=== PATIENT | female | born 1995 | race Caucasian/White ===

== ENCOUNTER 2021-05-13 17:04 | Emergency (ER) | payer OTHER ==
--- NOTE | 2021-05-13 19:12 | EDM.PDOC ---
ED HPI GENERAL MEDICAL PROBLEM - General Chief Complaint: Bite:Animal, Insect Stated Complaint: RABIES SHOT Time Seen by Provider: 05/13/21 18:47 Source of Information: Reports: Patient History Limitations: Reports: No Limitations - History of Present Illness INITIAL COMMENTS - FREE TEXT/NARRATIVE: Ms. 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 She explained that someone [facility] the [facility] in a box. The cat did not have a collar. She went to pick the cat up to transfer it from the box to a crate so that it could be impounded, when the cat "freaked out", scratching and possibly biting her right forearm. She was also scratched on her distal left forearm, but there are no puncture wounds. The cat then ran off. She states that the interaction was so quick, that she is not sure if the cat actually bit her or not. The patient is otherwise uninjured. Here in the ED, the patient is found to be hemodynamically stable, afebrile, saturating 96% on room air. She is comfortable, in no acute distress. Prior to this afternoon, the patient denies having a recent fever, chills, sore throat, ear pain, nasal or sinus congestion, cough, dyspnea, chest pain, palpitations, nausea, vomiting, constipation, diarrhea, abdominal pain, urinary symptoms, recent weight gain or weight loss, recent bloody bowel movements or black bowel movements, recent joint aches, headaches, or rashes. The patient's PCP is Dr. Wendi Schaefer, in [place]. She has not received a COVID vaccination. Bilateral Arm Pain Score (Numeric/FACES): 1 - Related Data Allergies Allergy/AdvReac Type Severity Reaction Status Date / Time No Known Allergies Allergy Verified 05/13/21 17:35 Home Meds: Home Meds Amoxicillin/Potassium Clav [Augmentin 875-125 Tablet] 1 tab PO Q12H #19 tablet 05/13/21 [Rx] Venlafaxine [Effexor] 107 mg PO DAILY 05/13/21 [History] Past Medical History Psychiatric History: Reports: Anxiety - Past Surgical History HEENT Surgical History: Reports: Oral Surgery (dental extractions) Social & Family History - Tobacco Use Tobacco Use Status *Q: Former Tobacco User Years of Tobacco use: 11 Packs/Tins Daily: 0.2 Month/Year Tobacco Last Used: Quit 2019 Tobacco Use Comment: Started smoking 2007 - Caffeine Use Caffeine Use: Reports: Coffee, Energy Drinks, Soda, Tea - Alcohol Use Alcohol Use History: Yes Alcohol Use Frequency: Socially - Recreational Drug Use Recreational Drug Use: Yes Drug Use in Last 12 Months: No Recreational Drug Type: Reports: Marijuana/Hashish (last smoked 2008) - Living Situation & Occupation Living situation: Reports: Single, Alone Occupation: Employed ([employer]) ED ROS GENERAL - Review of Systems Review Of Systems: Comprehensive ROS is negative, except as noted in HPI. ED EXAM, ANIMAL BITE - Physical Exam Exam: See Below Exam Limited By: No Limitations General Appearance: Alert, WD/WN, No Apparent Distress Extremities: Other (2 puncture wounds on the distal right forearm approximately 1.5 cm apart, each with a tiny drop of blood, although not actively bleeding. Several other subtle scratches/shallow puncture wounds to the right forearm. Scratches to the distal left forearm.) Course - Vital Signs Last Recorded V/S: Last Vital Signs Temp 36.7 C 05/13/21 17:38 Pulse 89 05/13/21 17:38 Resp 20 05/13/21 17:38 BP 130/79 05/13/21 17:38 Pulse Ox 96 05/13/21 17:38 - Orders/Labs/Meds Meds: Medications Discontinued Medications Generic Name Dose Route Start Last Admin Trade Name Irene PRN Reason Stop Dose Admin Amoxicillin/Clavulanate Potassium 1 tab 05/13/21 19:14 05/13/21 20:08 Amoxicillin/Clavulanate K 875-125 Mg Tab PO 05/13/21 19:15 1 tab ONETIME STA Administration Rabies Immune Globulin 1,740 unit 05/13/21 19:58 05/13/21 20:08 Rabies Immune Globulin/Pf 300 Unit/Ml 5 Ml Sdv IM 05/13/21 19:59 1,740 unit .ONCE STA Administration Rabies Vaccine 2.5 unit 05/13/21 19:30 05/13/21 20:09 Rabies Vaccine (Freeman) 2.5 Unit Inj Kit IM 05/13/21 19:31 2.5 unit .ONCE ONE Administration - Re-Assessments/Exams Free Text/Narrative Re-Assessment/Exam: 05/13/21 19:39 There are 2 puncture wounds on the patient's distal right forearm, each with a tiny drop of blood, but, after the wounds were cleaned, they likely did not penetrate into the subcutaneous tissue. Whether or not the patient requires postexposure prophylaxis (pep) is unclear. The [facility] was contacted at 19:07. Unfort unately, the person heating and refrigeration inspector acknowledged that he is not medically trained, and therefore could not advise for or against PEP. Kim at [facility] contacted at 19:12. Unfortunately, no Infectious Disease specialist is heating and refrigeration inspector. Case discussed with Jose A at [facility] at 19:15. Case then discussed with Dr. Aponte, Infectious Diseases specialist at [facility], at 19:21. Because the cat escaped, he recommended that we proceed with PEP. Based on the patient's weight, she will be given 1725 units of RIG, with approximately half injected into the site of the punctures, the other half into her arm. She will also be started on the rabies vaccine, day 0, and will need repeat doses on days 3, 7, and 14. Additionally, the patient will be started on a 10-day course of Augmentin. 05/13/21 20:18 I was able to infiltrate the entire 5.8 ml (1725 Units) of RIG into the areas of puncture wounds on the patient's distal right forearm. The patient tolerated the procedure well. She was then given her first of 4 rabies vaccinations in her left deltoid per Corrina HOWE. She will be started on Augmentin here in the ED, and I will submit a prescription for the patient to complete a 10-day course to the pharmacy of her choice. She is to in order to receive her additional rabies vaccinations. Departure - Departure Time of Disposition: 20:20 Disposition: Home, Self-Care 01 Condition: Good Clinical Impression: Cat bite, Need for post exposure prophylaxis for rabies - Discharge Information *PRESCRIPTION DRUG MONITORING PROGRAM REVIEWED*: Not Applicable *COPY OF PRESCRIPTION DRUG MONITORING REPORT IN PATIENT CR: Not Applicable Prescriptions: Amoxicillin/Potassium Clav [Augmentin 875-125 Tablet] 1 tab PO Q12H #19 tablet Instructions: Animal Bite, Adult, [id number] Referrals: Wendi Schaefer MD [Ordering Only Provider] - Forms: ED Department Discharge Additional Instructions: You were seen in the emergency room after you were scratched and possibly bitten by a stray cat this afternoon. You were treated with a local infusion of rabies immunoglobulin (RIG) into the site of the possible bite, as well as your first of 4 rabies vaccinations. You have been started on the antibiotic Augmentin, and a prescription for Augmentin has [facility], located in the [facility] across the street from the hospital. Take 1 tablet of Augmentin every 12 hours, starting tomorrow morning, 05/14/2021, as prescribed. Finish the entire prescription unless told otherwise by a doctor. Please contact the to arrange for your 2nd, 3rd, and 4th rabies vaccinations, on , 05/16/2021, 05/20/2021, and 05/27/2021, respectively. Keep your arm clean with ordinary soap and water. You may take [id number] Tylenol or ibuprofen as needed for discomfort. If any other problems, please do not hesitate to return to the ER. Sepsis Event Note (ED) - Focused Exam Vital Signs: Vital Signs Temp Pulse Resp BP Pulse Ox 05/13/21 17:38 36.7 C 89 20 130/79 96
[2021-05-13] MEDS ORDERED: Amoxicillin/Clavulanate K 875-125 MG Tab PO STA (19:14)
[2021-05-13] MEDS ORDERED: Rabies Immune Globulin PF 150 Units/ML 2 ML SDV IM STA (19:30)
[2021-05-13] MEDS ORDERED: Rabies Vaccine (Avian) 2.5 Unit Inj Kit IM ONE (19:30)
[2021-05-13] MEDS ORDERED: Rabies Immune Globulin/PF 300 UNIT/ML 5 ML SDV IM STA (19:58)
== END 2021-05-13 20:33 | disposition home or self-care (01) ==
LOC: JD.ED 17:04
DX: S51.851A Open bite of right forearm, initial encounter (principal); Z87.891 Personal history of nicotine dependence; Z23 Encounter for immunization; W55.01XA Bitten by cat, initial encounter
CPT/HCPCS: 90375; 90471; 90675; 96372; 99283; A9270